=== PATIENT | male | born 1990 | race Caucasian/White ===

== ENCOUNTER → 2020-12-24 | Emergency (ER) | payer OTHER ==
[~2020-12-24] VITALS: Ht 175.3 cm; Wt 93.0 kg
== END | disposition home or self-care (01) ==
LOC: ER 20:32
DX: S51.811A Laceration without foreign body of right forearm, initial encounter (principal); W26.8XXA Contact with other sharp object(s), not elsewhere classified, initial encounter; Y93.89 Activity, other specified; Y92.89 Other specified places as the place of occurrence of the external cause; Y99.8 Other external cause status

== ENCOUNTER 2021-08-21 18:57 | Emergency (ER) | payer OTHER ==
[~2021-08-21] VITALS: Ht 162.6 cm; Wt 99.8 kg
[2021-08-21] MEDS ORDERED: DILTIAZEM ER240 M3 PO (19:27)
[2021-08-21] MEDS ORDERED: KETO10TA2 PO (22:16)
[2021-08-21] MEDS ORDERED: CIPRO500 MG PO (22:16)
== END 2021-08-21 22:22 | disposition home or self-care (01) ==
LOC: ER 18:57
DX: K63.89 Other specified diseases of intestine (principal); R10.32 Left lower quadrant pain

== ENCOUNTER 2023-12-24 00:58 | Emergency (ER) | payer OTHER ==
[~2023-12-24] VITALS: Ht 177.8 cm; Wt 95.3 kg
[~2023-12-24 00:58] MED LIST: CIPRO500 MG PO; DILTIAZEM ER240 M3 PO; KETO10TA2 PO
[2023-12-24] MEDS ORDERED: KETOROLAC TROMETHAMINE 30 MG VIAL IV STA (01:48)
[2023-12-24] MEDS ORDERED: RINGERS SOLUTION,LACTATED 1,000 ML IV STA (01:48)
[2023-12-24] MEDS ORDERED: MEPERIDINE HCL/PF 50 MG/ML VIAL IM STA (01:49)
[2023-12-24] MEDS ORDERED: PROMETHAZINE HCL 50 MG/ML AMPUL IM STA (01:49)
[2023-12-24] MEDS ORDERED: KETOROLAC TROMETHAMINE 30 MG VIAL ONE (01:53)
[2023-12-24] MEDS ORDERED: HYOSCYAMINE SULFATE 0.125 MG TAB.SUBL ONE (01:54)
[2023-12-24] MEDS ORDERED: PROMETHAZINE HCL 50 MG/ML AMPUL IM ONE (01:54)
[2023-12-24] MEDS ORDERED: HYOSCYAMINE SULFATE 0.125 MG TAB.SUBL SL ONE (02:00)
[2023-12-24 02:08] LABS: HEMATOCRIT 47.5 % (39.0-48.0); HEMOGLOBIN 16.4 g/dL (13-16.00); MEAN CELL VOLUME 82.3 fL (80.0-100.00); MEAN CORPUSCULAR HEMOGLOBIN 28.3 pg (27.00-32.0); MEAN CORPUSCULAR HGB CONC 34.4 g/dl (32.0-36.0); PLATELET COUNT 228 K/uL (150-450); RED BLOOD COUNT 5.77 M/uL (4.00-6.00); RED CELL DISTRIBUTION WIDTH 14.6 % (11.5-14.5)
[2023-12-24 02:26] LABS: CALCIUM 9.1 mg/dL (8.5-10.1); CREATININE SERUM 1.19 mg/dL (0.70-1.30); GFR 71.3; POTASSIUM 4.23 mEq/L (3.5-5.1)
[2023-12-24 02:31] LABS: PH,URINE 5.5 (5.0-8.0); URINE APPEARANCE Clear; URINE BILIRRUBIN Negative (NEGATIVE); URINE BLOOD Negative; URINE COLOR Yellow; URINE GLUCOSE Negative (NEGATIVE); URINE LEUKOCYTE Negative; URINE NITRATE Negative; URINE PROTEIN Negative (NEGATIVE)
[2023-12-24 02:35] LABS: URINE BACTERIA 17.6 uL (0.0-1933)
[2023-12-24 02:41] LABS: URINE RBC 0.9 uL (0.0-20.8)
== END 2023-12-24 06:11 | disposition home or self-care (01) ==
LOC: ER 01:00
DX: N20.1 Calculus of ureter (principal)